=== PATIENT | female | born 1975 | race Caucasian/White ===

== ENCOUNTER 2018-01-19 04:17 | Emergency (ER) | payer OTHER ==
[2018-01-19] MEDS ORDERED: predniSONE 20 MG TABLET PO STA (04:30)
[2018-01-19] MEDS ORDERED: ALBUTEROL NEB 2.5 MG/3 ML INH STA (04:30)
[2018-01-19] MEDS ORDERED: IPRATROPIUM/ALBUTEROL 3 ML NEB INH STA (04:31)
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
[2018-01-19 06:09] VITALS: BP 115/65
== END 2018-01-19 06:00 | disposition home or self-care (01) ==
LOC: ED 04:17
DX: J45.909 Unspecified asthma, uncomplicated (principal)
CPT/HCPCS: 94640; 94664; 99283; J7512